=== PATIENT | female | born 1955 | race Two or more races ===

== ENCOUNTER 2022-11-28 06:04 | Emergency (ER) | payer OTHER ==
[~2022-11-28] VITALS: Ht 162.6 cm; Wt 69.9 kg
[2022-11-28] MEDS ORDERED: NORVASC5 MG PO (06:23)
[2022-11-28] MEDS ORDERED: LIPITOR40 M1 PO (06:23)
[2022-11-28] MEDS ORDERED: TOPROL XL25 M1 (06:23)
[2022-11-28] MEDS ORDERED: GLUMETZA500 MG (06:23)
== END 2022-11-28 11:05 | disposition home or self-care (01) ==
LOC: ER 06:04
DX: M16.12 Unilateral primary osteoarthritis, left hip (principal); E03.9 Hypothyroidism, unspecified